=== PATIENT | male | born 2000 | race Two or more races ===

== ENCOUNTER 2024-12-23 20:19 | Emergency (ER) | payer BC ==
[~2024-12-23] VITALS: Ht 182.9 cm; Wt 120.2 kg
[2024-12-23 20:22] VITALS: O2SAT 98
[2024-12-23] MEDS: IBUPROFEN 800 MG TABLET PO ONE (20:58)
[2024-12-23] MEDS ORDERED: HYDR-4209 PO (21:37)
[2024-12-23 22:37] VITALS: BP 131/82; TEMP 98.2
== END 2024-12-23 22:40 | disposition home or self-care (01) ==
LOC: ER 20:19
DX: M79.641 Pain in right hand (principal); S62.316A Displaced fracture of base of fifth metacarpal bone, right hand, initial encounter for closed fracture; W22.09XA Striking against other stationary object, initial encounter; Y93.71 Activity, boxing; Y92.89 Other specified places as the place of occurrence of the external cause; Y99.8 Other external cause status
CPT/HCPCS: 73130; A4606; A4663